=== PATIENT | male | born 1975 | race African-American/Black ===

== ENCOUNTER 2018-11-08 11:18 | Observation (INO) | payer OTHER ==
[~2018-11-08] VITALS: Ht 172.7 cm; Wt 77.6 kg
[2018-11-08 11:58] VITALS: BP 119/74; TEMP 101; Ht 172.7 cm; Wt 77.6 kg
[2018-11-08 12:41] LABS: PLATELET COUNT 253 K/uL (142-355)
[2018-11-08 13:03] LABS: POTASSIUM 3.8 mmol/L (3.6-5.2); SODIUM 131 mmol/L (136-145)
[2018-11-08 20:00] VITALS: BP 100/62; TEMP 98.1
[2018-11-09] VITALS: BP 160/80; TEMP 99.8
[2018-11-09 04:00] VITALS: BP 95/60; TEMP 98.9
[2018-11-09 04:47] LABS: POTASSIUM 3.9 mmol/L (3.6-5.2)
[2018-11-09 04:48] LABS: PLATELET COUNT 247 K/uL (142-355)
[2018-11-09 08:00] VITALS: BP 101/65; TEMP 97.8
[2018-11-09 12:00] VITALS: BP 107/65; TEMP 97.9
[2018-11-09 16:00] VITALS: BP 99/59; TEMP 98
[2018-11-09 20:02] VITALS: BP 112/75; TEMP 99.5
[2018-11-10 00:05] VITALS: BP 98/68; TEMP 98.2
[2018-11-10 04:03] VITALS: BP 103/68; TEMP 98.1
[2018-11-10 04:13] LABS: PLATELET COUNT 265 K/uL (142-355)
[2018-11-10 04:39] LABS: POTASSIUM 4.1 mmol/L (3.6-5.2)
[2018-11-10 08:05] VITALS: BP 107/71; TEMP 98.7
== END 2018-11-10 09:55 | disposition home or self-care (01) ==
LOC: MED/SURG 11:18
PROVIDERS: Family Medicine; ADMIT Family Medicine
DX: A04.8 Other specified bacterial intestinal infections (principal); R51 Headache; R50.9 Fever, unspecified; E86.0 Dehydration; E87.1 Hypo-osmolality and hyponatremia; D72.828 Other elevated white blood cell count; D63.8 Anemia in other chronic diseases classified elsewhere; K75.0 Abscess of liver; E46 Unspecified protein-calorie malnutrition; R11.2 Nausea with vomiting, unspecified; K27.9 Peptic ulcer, site unspecified, unspecified as acute or chronic, without hemorrhage or perforation; R10.13 Epigastric pain
CPT/HCPCS: 36415; 80053; 81000; 82150; 82550; 83605; 83690; 84484; 85027; 86318; 87040; 93005; 96361; 96365; 96366; 96367; 96374; 96375; 99220; G0378; G0379; J0696; J1885; J2270; J2405; J3490; Q9963

== ENCOUNTER 2019-01-16 08:19 | Outpatient (CLI) | payer OTHER | END 2019-01-16 23:27 | disposition home or self-care (01) | LOC: CT 08:19 | DX: Z09 Encounter for follow-up examination after completed treatment for conditions other than malignant neoplasm (principal); R10.9 Unspecified abdominal pain; R51 Headache; D64.9 Anemia, unspecified; R16.0 Hepatomegaly, not elsewhere classified | CPT/HCPCS: Q9963 ==